=== PATIENT | female | born 2000 | race Caucasian/White ===

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

== ENCOUNTER 2018-01-07 07:24 | Inpatient (IN) ==
[2018-01-07] MEDS ORDERED: Citric Acid/Sodium Citrate Liq 30 ML UDC PO SCH (08:00)
[2018-01-07] MEDS ORDERED: Sod Chloride 0.9% Inj 1,000 ML IV.CONT PRN (08:00)
[2018-01-07] MEDS ORDERED: Sodium Chlor 0.9% Inj 500 ML IV.SIG PRN (08:00)
[2018-01-07] MEDS ORDERED: Oxytocin 30 Units/500ml Premix 30 UNITS/500 ML BAG IV.SIG ONE (08:00)
[2018-01-07] MEDS ORDERED: Naloxone Inj 0.4 MG/ML Vial IV.PUSH PRN ×2 (08:00→19:51)
[2018-01-07] MEDS ORDERED: fentaNYL Citrate Inj 100 MCG/2 ML Ampul IV.PUSH PRN ×2 (08:00)
--- NOTE | 2018-01-07 08:05 | ED ---
History of Present Illness Primary Care Physician: No Primary Care Physician Chief Complaint: ctx History of Present Illness: Pt is a 17y/o G1 @ 40.1wks. She has PNC with [facility]. She presents to the ED with c/o ctx which began Sunday but have been painful since last evening. She denies LOF, VB. +FM. Weeks Gestation:: 40 Para: 0 : 1 Review of Systems All other systems reviewed negative except as stated in HPI PMFSH - Medical History Medical History: Medical History (Last Updated 01/07/18 @ 08:03 by Sherlyn Vuong MD) Anemia - Tobacco History Smoking Status: Light tobacco smoker (Less than 1 per day, +MJ) - Alcohol History How Often Do You Have a Drink Containing Alcohol: Never - Substance Use History Substance History: Past History (MJ) - Travel History History of Recent Travel: No Medications and Allergies Active Medications: Active Medications Sodium Chloride (Ns Flush) 2 ml IV.FLUSH BID CLARENCE Sodium Chloride (Ns Flush) 2 ml IV.FLUSH PRN PRN PRN Reason: FLUSH AFTER USING IV ACCESS Allergies Allergy/AdvReac Type Severity Reaction Status Date / Time No Known Allergies Allergy Unknown none Uncoded 01/04/18 20:32 Home Medications Medication Instructions Recorded Confirmed Type ferrous sulfate [iron] 1 tab PO DAILY 01/04/18 01/04/18 History prenat.vits,luis,[id number] 1 tab PO DAILY 01/04/18 01/04/18 History [ Vitamin] Exam Vital signs: Vital Signs 01/07/18 07:38 Temperature 97.7 F Pulse Rate 75 Respiratory Rate 20 Blood Pressure 144/82 H Narrative: General: well developed, well nourished, uncomfortable with ctx HEENT: normocephalic atraumatic, extraocular movements intact, neck supple Abdomen: soft, gravid, nontender, nondistended Uterus: fundus term Extremities: full range of motion Skin: normal coloration, no rashes, no suspicious skin lesions noted Neurologic: cranial nerves 2-12 grossly intact, normal muscle tone, normal gait Psychiatric: normal mood and affect, appropriate FHTs: 130s, +accels, no decels, moderate variability, reactive [place]: ctx q 2-3m Cvx: 3-4/90/-2 Assessment and Plan - Diagnosis (1) 40 weeks gestation of Code(s): Z3A.40 - 40 weeks gestation of Status: Acute (2) Post-term , 40-42 weeks of gestation Code(s): O48.0 - Post-term Status: Acute (3) Uterine contractions during Code(s): O62.2 - Other uterine inertia Status: Acute - Plan 17y/o G1 @ 40.1wks in labor. -- admit to L&D -- CLD, CEFM/toco -- epidural/art PRN -- FHTs cat 1 Dispo: anticipate Discharge Plan - Physicians Team ED Provider: Sherlyn Vuong V Primary Care Provider: Primary Care Tahira Stoddard - Rxs /Orders / Referrals /Forms Prescriptions: No Action ferrous sulfate [iron] 325 mg (65 mg iron) Tablet 1 tab PO DAILY prenat.vits,luis,[id number] [ Vitamin] Tablet 1 tab PO DAILY - Discharge Instructions Print Language: Polish
[2018-01-07 08:56] LABS: Baso # (Auto) 0.1 th/mm3 (0.0-0.2); Baso % (Auto) 0.7 % (0.0-2.0); Eos # (Auto) 0.1 th/mm3 (0.0-0.4); Eos % (Auto) 0.8 % (0.0-4.0); Hematocrit 37.2 % (35.0-46.0); Hemoglobin 13.1 gm/dL (11.6-15.3); Lymph # (Auto) 1.9 th/mm3 (1.0-4.8); Lymph % (Auto) 24.2 % (9.0-44.0); Mean Corpuscular HGB Conc 35.1 % (32.0-36.0); Mean Corpuscular Hemoglobin 30.9 pg (27.0-34.0); Mono # (Auto) 0.6 th/mm3 (0.0-0.9); Mono % (Auto) 7.6 % (0.0-8.0); Neut # (Auto) 5.4 th/mm3 (1.8-7.7); Neut % (Auto) 66.7 % (16.0-70.0); Red Blood Count 4.23 mil/mm3 (4.00-5.30); Red Cell Distribution Width 13.1 % (11.6-17.2); White Blood Count 8.1 th/mm3 (4.0-11.0)
[2018-01-07 09:01] LABS: Bacteria,Urine Rare /hpf; Bilirubin,Urine Negative (Negative); Clarity,Urine Hazy (Clear); Color,Urine Yellow (Yellw/Straw); Glucose,Urine (UA) Negative (Negative); Leukocyte Esterase,Urine Trace (Negative); Nitrite,Urine Negative (Negative); Specific Gravity,Urine 1.013 (1.002-1.035); Squamous Epithelial Cell,Urine 4 /hpf (0-5)
[2018-01-07 09:05] LABS: Amphetamine Urine With Conf Neg (Neg); Benzodiazepine Urine With Conf Neg (Neg)
[2018-01-07] MEDS ORDERED: Lidocaaine 1.5%/Epinephrine 1:200,000 PF Inj 5 ML Amp ONE (09:16)
[2018-01-07] MEDS ORDERED: Lidocaine PF 1% Inj 5 ML Vial ONE (09:17)
[2018-01-07] MEDS ORDERED: fentaNYL 2MCG-Bupiv 0.125% Epi 150 ML EPIDURAL ONE (10:02)
[2018-01-07] MEDS ORDERED: fentaNYL 2MCG-Bupiv 0.125% Epi 150 ML EPIDURAL PRN (12:30)
[2018-01-07] MEDS ORDERED: fentaNYL Citrate Inj 100 MCG/2 ML Ampul EPIDURAL ONE (12:30)
--- NOTE | 2018-01-07 12:41 | P.HPOB ---
History of Present Illness Primary Care Physician: No Primary Care Physician Chief Complaint: contractions History of Present Illness: 17y/o G1 at 40.1wks by LMP presents with uterine contractions. She has PNC with [facility]. Contractions began last Sunday but has continued to increase in frequency and intensity. This morning at 5 AM or 3 minutes apart. She is having some cream-colored discharge with a little bit of blood. Denies any loss of fluids. Is feeling baby move. Uncomplicated . Noted to have some anemia and taking iron supplements. Stopped smoking marijuana at the end of November. Smokes a half of cigarettes per day. Did not get care until 21 weeks due to insurance. Denies any chest pain or shortness of breath. Weeks Gestation:: 40 Para: 0 : 1 - Inpatient Certification I certify that the inpatient services were ordered in accordance with Medicare regulations governing the order. This includes certification that hospital inpatient services are reasonable and necessary and in the case of services not specified as inpatient-only under 42 CFR 419.22(n), that they are appropriately provided as inpatient services in accordance to with the 2-midnight benchmark under 43 CFR 412.3(e) Estimated Total Length of Stay (Days): 3 Plans for Post Hospital Care: Home Review of Systems Constitutional: Denies chills Ears, Nose, Mouth, and Throat: Denies headache(s) Cardiovascular: Denies chest pain, Denies shortness of breath Gastrointestinal: Denies vomiting Neurologic: Denies headache(s) PMFSH - Medical / Surgical Hx Neg / Unobtainable Medical Problems Denied: Yes Surgical History: No Previous Surgery - Tobacco History Smoking Status: Light tobacco smoker (Less than 1 per day, +MJ) - Alcohol History How Often Do You Have a Drink Containing Alcohol: Never - Substance Use History Substance History: Past History (MJ) - Travel History History of Recent Travel: No Recent Travel in the [place] Within the Last 8 Weeks: No Recent Travel Out of the Country Within the Last 8 Weeks: No Medications and Allergies Allergies Allergy/AdvReac Type Severity Reaction Status Date / Time No Known Allergies Allergy Verified 01/07/18 08:29 Home Medications Medication Instructions Recorded Confirmed Type ferrous sulfate [iron] 1 tab PO DAILY 01/04/18 01/07/18 History prenat.vits,luis,for-bbmq-ljxcd 1 tab PO DAILY 01/04/18 01/07/18 History [ Vitamin] Active Medications: Active Medications Citric Acid/Sodium Citrate (Sodium Citrate/Citric Acid Liq) 30 ml PO [employer] [facility] Stop: 01/11/18 07:59 Ephedrine Sulfate (Ephedrine/Ns Syringe) 10 mg IV.PUSH UNSCH PRN PRN Reason: SEE LABEL COMMENTS Stop: 01/08/18 12:17 Fentanyl Citrate (Fentanyl Inj) 50 mcg IV.PUSH Q1H PRN PRN Reason: Pain Scale 3 - 5 Fentanyl Citrate (Fentanyl Inj) 100 mcg IV.PUSH Q1H PRN PRN Reason: PAIN SCALE 6 TO 10 Last Admin: 01/07/18 08:35 Dose: 100 mcg Lactated Ringer's (Lr 1000 Ml Inj) 1,000 mls @ 125 mls/hr IV.CONT .Q8H CLARENCE Last Admin: 01/07/18 08:30 Dose: 125 mls/hr Lactated Ringer's (Lr 1000 Ml Inj) 1,000 mls @ 3,000 mls/hr IV.SIG UNSCH PRN PRN Reason: compromise or epidural Last Admin: 01/07/18 11:03 Dose: 3,000 mls/hr Sodium Chloride (Ns Inj) 500 mls @ 1,000 mls/hr IV.SIG UNSCH PRN PRN Reason: SEE LABEL COMMENTS Sodium Chloride (Ns Inj) 1,000 mls @ 100 mls/hr IV.CONT .Q10H PRN PRN Reason: SEE LABEL COMMENTS Fentanyl/Bupivacaine/Sodium Chlor (Fentanyl 2 Mcg-Bupiv 0.125% Epi) 150 mls @ 12 mls/hr EPIDURAL UNSCH PRN PRN Reason: for Labor Pain Lidocaine HCl (Xylocaine 1% Inj) 0.1 ml I-DERMAL PRN PRN PRN Reason: For IV start Stop: 01/10/18 07:59 Lidocaine HCl (Xylocaine 1% Inj) 10 ml INFILTRATN PRN PRN PRN Reason: For episiotomy repair Stop: 01/09/18 07:59 Mineral Oil (Muri-Lube Oil) 10 ml TOPICAL PRN PRN PRN Reason: PRN perineal massage Miscellaneous Information (Misc Information) 1 each OTHER UNSCH PRN PRN Reason: SEE LABEL COMMENTS Stop: 01/08/18 12:17 Miscellaneous Information (Misc Information) 1 each OTHER UNSCH PRN PRN Reason: SEE LABEL COMMENTS Stop: 01/08/18 12:17 Naloxone HCl (Narcan Inj) 0.1 mg IV.PUSH Q2M PRN PRN Reason: for opiate reversal Ondansetron HCl (Zofran Inj) 4 mg IV.PUSH Q6H PRN PRN Reason: NAUSEA OR VOMITING Last Admin: 01/07/18 10:18 Dose: 4 mg Sodium Chloride (Ns Flush) 2 ml IV.FLUSH BID CLARENCE Last Admin: 01/07/18 11:04 Dose: Not Given Sodium Chloride (Ns Flush) 2 ml IV.FLUSH PRN PRN PRN Reason: FLUSH AFTER USING IV ACCESS Exam Vital signs: Vital Signs 01/07/18 07:38 01/07/18 07:55 01/07/18 08:25 Temperature 97.7 F Pulse Rate 75 81 82 Respiratory Rate 20 Blood Pressure 144/82 H 01/07/18 09:10 01/07/18 09:25 01/07/18 10:00 Temperature 98.7 F Pulse Rate 81 93 H 69 Respiratory Rate 22 Blood Pressure 108/72 01/07/18 10:55 01/07/18 10:58 01/07/18 11:00 Temperature Pulse Rate 96 H 73 76 Respiratory Rate Blood Pressure 129/87 122/72 119/73 01/07/18 11:25 01/07/18 11:41 01/07/18 11:56 Temperature Pulse Rate 58 L 69 81 Respiratory Rate Blood Pressure 117/64 100/61 105/64 01/07/18 12:01 01/07/18 12:05 Temperature Pulse Rate 70 77 Respiratory Rate Blood Pressure 110/67 Intake & Output 01/06/18 01/07/18 01/07/18 18:59 06:59 18:59 Weight 58 kg Other: Weight On Admission 58 kg Narrative: General: well developed, well nourished, uncomfortable with ctx HEENT: normocephalic atraumatic, extraocular movements intact, neck supple Abdomen: soft, gravid, nontender, nondistended Uterus: fundus term Extremities: full range of motion Skin: normal coloration, no rashes, no suspicious skin lesions noted Neurologic: cranial nerves 2-12 grossly intact, normal muscle tone, normal gait Psychiatric: normal mood and affect, appropriate FHTs: 130s, +accels, no decels, moderate variability, reactive [place]: contractions 2-3m Cvx: 3-4/90/-2 Results - Labs CBC & Chem 7: 01/07/18 08:30 Labs: Laboratory Results - last 24 hr 01/07/18 01/07/18 01/07/18 07:35 08:30 08:30 WBC 8.1 RBC 4.23 Hgb 13.1 Hct 37.2 MCV 88.0 MCH 30.9 MCHC 35.1 RDW 13.1 Plt Count MPV 12.0 H Prelim Diff (Auto) Slide review pending Neut % (Auto) 66.7 Lymph % (Auto) 24.2 [place] % (Auto) 7.6 Eos % (Auto) 0.8 Baso % (Auto) 0.7 Neut # (Auto) 5.4 Lymph # (Auto) 1.9 [place] # (Auto) 0.6 Eos # (Auto) 0.1 Baso # (Auto) 0.1 WBC Differential . Diff Scan Auto diff confirmed Differential Comment . Platelet Estimate Low L Platelet Morphology Enlarged H Urine Color Urine Clarity Urine pH Ur Specific [place] Urine Protein Urine Glucose (UA) Urine Ketones Urine Occult Blood Urine Nitrate Urine Bilirubin Urine Urobilinogen Ur Leukocyte Esterase Urine RBC Urine WBC Ur Squamous Epith Cells Urine Bacteria Micro UA Comment Ur Microscopic Review Urine Culture Comments Urine Opiates Screen Neg Ur Barbiturates Screen Neg Ur Amphetamine Screen Neg U Benzodiazepines Scrn Neg Urine Cocaine Screen Neg U Cannabinoids Screen Neg Blood Type O Negative 01/07/18 08:30 WBC RBC Hgb Hct MCV MCH MCHC RDW Plt Count MPV Prelim Diff (Auto) Neut % (Auto) Lymph % (Auto) [place] % (Auto) Eos % (Auto) Baso % (Auto) Neut # (Auto) Lymph # (Auto) [place] # (Auto) Eos # (Auto) Baso # (Auto) WBC Differential Diff Scan Differential Comment Platelet Estimate Platelet Morphology Urine Color Yellow Urine Clarity Hazy H Urine pH 6.0 Ur Specific [place] 1.013 Urine Protein Negative Urine Glucose (UA) Negative Urine Ketones Negative Urine Occult Blood Moderate H Urine Nitrate Negative Urine Bilirubin Negative Urine Urobilinogen Less than 2 Ur Leukocyte Esterase Trace H Urine RBC Less than 1 Urine WBC 9 H Ur Squamous Epith Cells 4 Urine Bacteria Rare H Micro UA Comment Culture indicated Ur Microscopic Review Not Reportable Urine Culture Comments Culture indicated Urine Opiates Screen Ur Barbiturates Screen Ur Amphetamine Screen U Benzodiazepines Scrn Urine Cocaine Screen U Cannabinoids Screen Blood Type Caprini VTE Risk Assessment Caprini VTE Risk Assessment: Moderate/High Risk (score >= 2) Caprini Risk Assessment Model: Point Value = 1 Point Value = 2 Point Value = 3 Point Value = 5 Age 41-60 Minor surgery BMI > 25 kg/m2 Swollen legs Varicose veins or History of unexplained or recurrent spontaneous Oral contraceptives or hormone replacement Sepsis (< 1 month) Serious lung disease, including pneumonia (< 1 month) Abnormal pulmonary function Acute myocardial infarction Congestive heart failure (< 1 month) History of inflammatory bowel disease Medical patient at bed rest Age 61-74 Arthroscopic surgery Major open surgery (> 45 min) Laparoscopic surgery (> 45 min) Malignancy Confined to bed (> 72 hours) Immobilizing plaster cast Central venous access Age >= 75 History of VTE Family history of VTE Factor V Leiden Prothrombin [id number] Lupus anticoagulant Anticardiolipin antibodies Elevated serum homocysteine Heparin-induced thrombocytopenia Other congenital or acquired thrombophilia Stroke (< 1 month) Elective arthroplasty Hip, pelvis, or leg fracture Acute spinal cord injury (< 1 month) Prophylaxis Regimen: Total Risk Factor Score Risk Level Prophylaxis Regimen 0-1 Low Early ambulation 2 Moderate Order ONE of the following: *Sequential Compression Device (SCD) *Heparin 5000 units SQ BID 3-4 Higher Order ONE of the following medications: *Heparin 5000 units SQ TID *Enoxaparin/Lovenox 40 mg SQ daily (WT < 150 kg, CrCl > 30 mL/min) *Enoxaparin/Lovenox 30 mg SQ daily (WT < 150 kg, CrCl > 10-29 mL/min) *Enoxaparin/Lovenox 30 mg SQ BID (WT < 150 kg, CrCl > 30 mL/min) AND/OR *Sequential Compression Device (SCD) 5 or more Highest Order ONE of the following medications: *Heparin 5000 units SQ TID (Preferred with Epidurals) *Enoxaparin/Lovenox 40 mg SQ daily (WT < 150 kg, CrCl > 30 mL/min) *Enoxaparin/Lovenox 30 mg SQ daily (WT < 150 kg, CrCl > 10-29 mL/min) *Enoxaparin/Lovenox 30 mg SQ BID (WT < 150 kg, CrCl > 30 mL/min) AND *Sequential Compression Device (SCD) Assessment and Plan - Diagnosis (1) Uterine contractions during Code(s): O62.2 - Other uterine inertia Status: Acute Plan: 17-year-old G 1 P0 presents at 40 weeks and 1 day by last period Presents with uterine contractions. GBS negative on 831. heart tracings category 1. -Cervical exam: 3-/-2 -Admit to labor and delivery -FHT - Attending Attestation The exam, history, and the medical decision-making described in the above note were completed with the assistance of the resident physician. I reviewed and agree with the findings presented. I attest that I had a [id number] encounter with the patient on the same day, and personally performed and documented my assessment and findings in the medical record.
--- NOTE | 2018-01-07 13:53 | P.OBLABOR ---
Subjective Interval history: Patient states that she is doing well. Pain is well-controlled with epidural. No complaints. Objective Vital Signs: Vital Signs - 8 hr 01/07/18 07:38 01/07/18 07:55 01/07/18 08:25 Temperature 97.7 F Pulse Rate 75 81 82 Respiratory Rate 20 Blood Pressure 144/82 H 01/07/18 09:10 01/07/18 09:25 01/07/18 10:00 Temperature 98.7 F Pulse Rate 81 93 H 69 Respiratory Rate 22 Blood Pressure 108/72 01/07/18 10:55 01/07/18 10:58 01/07/18 11:00 Temperature Pulse Rate 96 H 73 76 Respiratory Rate Blood Pressure 129/87 122/72 119/73 01/07/18 11:25 01/07/18 11:41 01/07/18 11:56 Temperature Pulse Rate 58 L 69 81 Respiratory Rate Blood Pressure 117/64 100/61 105/64 01/07/18 12:01 01/07/18 12:05 01/07/18 12:10 Temperature 98.3 F Pulse Rate 70 77 67 Respiratory Rate 18 Blood Pressure 110/67 01/07/18 12:40 01/07/18 12:46 Temperature Pulse Rate 79 71 Respiratory Rate Blood Pressure 132/120 H 121/72 Objective: Pelvic Exam: Cervix: mid position Dilatation: 5 cm Effacement: 100% Station: -1 Presentation: vertex Membranes: ruptured Uterine Contractions: q2-3 min FHT's: Category: 1 Baseline: 140s Reactive: yes Variability: moderate Decels: none Assessment and Plan - Diagnosis (1) Uterine contractions during Code(s): O62.2 - Other uterine inertia Status: Acute Plan: 17-year-old G 1 P0 presents at 40 weeks and 1 day by last period Presents with uterine contractions. GBS negative on 831. heart tracings continues to be category 1, reassuring. -Cervical exam: 5/100/-1 -AROM at 1347 of meconium stained fluid - Attending Attestation The exam, history, and the medical decision-making described in the above note were completed with the assistance of the resident physician. I reviewed and agree with the findings presented. I attest that I had a [id number] encounter with the patient on the same day, and personally performed and documented my assessment and findings in the medical record.
[2018-01-07] MEDS ORDERED: Lidocaine PF 1% Inj 30 ML Vial ONE (15:38)
[2018-01-07] MEDS ORDERED: Measles/Mumps/Rubella Vaccine Inj 0.5 ML Vial SQ ONE (16:00)
[2018-01-07] MEDS ORDERED: Diphtheria/Tetanus/Pertussis Vaccine Inj 0.5 ML Syringe IM ONE (16:00)
--- NOTE | 2018-01-07 18:29 | P.OBGPN ---
S: Pt is comfortable with epidural. O:VSS cat1 FHR /-2 A: progressing inactive phase P: Cont current care.
[2018-01-07] MEDS ORDERED: Oxytocin 30 Units/500ml Premix 30 UNITS/500 ML BAG ONE (19:04)
[2018-01-07] MEDS ORDERED: Bisacodyl 10 MG Supp RECTAL PRN (19:51)
[2018-01-07] MEDS ORDERED: Acetaminophen 325 MG Tablet PO PRN (19:51)
[2018-01-07] MEDS ORDERED: Oxytocin 30 Units/500ml Premix 30 UNITS/500 ML BAG IV.CONT PRN (19:51)
[2018-01-07] MEDS ORDERED: Benzocaine 20% Top Spray 60 ML Can TOPICAL PRN (19:51)
[2018-01-07] MEDS ORDERED: Zolpidem Tartrate 5 MG Tablet PO PRN (19:51)
[2018-01-07] MEDS ORDERED: Witch Hazel 50%/Glyderin 12.5% 40 Pad Jar RECTAL PRN (19:51)
--- NOTE | 2018-01-07 19:52 | P.OBDELI ---
Weeks Gestation: 40 Medical Induction of Labor: Yes Artificial Rupture of Membrane: Yes Anesthesia: Epidural Episiotomy: none Vaginal Delivery: Normal Presentation: Occiput anterior Nuchal Cord: None Delayed Cord Clamping (45 sec): Yes Laceration: 1 deg Estimated blood loss (mL): 200 (1st degree lacerations at 7 and 2 o'clock positions) : Female Infant Female A Weight: 3235 kg score (5 min): 8 score (10 min): 9 Additional Information: Head delivered by maternal effort. Anterior shoulder delivered without complication. Placenta delivered without complication. 1st degree tears at 7 and 2 o'clock position. No suture repair required. I attended and assisted with this delivery. (Priscilla HERR)
[2018-01-08] MEDS ORDERED: miSOPROStol 200 MCG Tablet ONE ×2 (01:44)
[2018-01-08] MEDS ORDERED: Tranexamic Acid Inj 1,000 MG in Sodium Chlor 0.9% Inj 100 ML IV.SIG ONE (01:48)
[2018-01-08] MEDS ORDERED: Oxytocin 30 Units/500ml Premix 30 UNITS/500 ML BAG IV.SIG ONE (01:48)
[2018-01-08] MEDS ORDERED: miSOPROStol 200 MCG Tablet RECTAL ONE (01:48)
[2018-01-08] MEDS ORDERED: miSOPROStol 200 MCG Tablet PO ONE (01:48)
[2018-01-08] MEDS ORDERED: Methylergonovine Inj 0.2 MG/ML Ampul ONE (01:48)
[2018-01-08] MEDS ORDERED: Methylergonovine Inj 0.2 MG/ML Ampul IM ONE ×2 (02:15→02:30)
--- NOTE | 2018-01-08 02:41 | P.OBGPN ---
I was called to assess this recent pp mother due to excessive bleeding. Upon arrival she was alert and oriented, bp146/98, pulse 100, Sat 98%, Dumas catheter was in place and had drained 150 cc of kannan urine Large clots were present on her veto-pad, the fundus was firm An IV Pitocin bolus was underway. The patient was given an additional 0.2 mg of IM methargen. A second IV was initiated and a CBC was sent. A bedside ultrasound was performed which demonstrated evidence of clot in the lower uterine segment and cervix. Bimanual examination was successful in removing these. Repeat ultrasound showed a much more appropriate endometrial cavity and the bleeding at the perineum had resolved. The blood loss was quantified by weight at 1055 g Her vital signs remained stable throughout with no significant drop in her blood pressure or further elevation of her pulse. Assessment: hemorrhage likely secondary to uterine atony which is now resolved Plan: Continue IV Pitocin solution. Hemoglobin pending.
[2018-01-08 02:55] LABS: Hematocrit 34.3 % (35.0-46.0); Hemoglobin 11.4 gm/dL (11.6-15.3); Mean Corpuscular HGB Conc 33.3 % (32.0-36.0); Mean Corpuscular Hemoglobin 29.7 pg (27.0-34.0); Mean Corpuscular Volume 89.2 fL (80.0-100.0); Mean Platelet Volume 12.3 fL (7.0-11.0); Red Blood Count 3.84 mil/mm3 (4.00-5.30); Red Cell Distribution Width 13.1 % (11.6-17.2)
[2018-01-08] MEDS ORDERED: Oxytocin 30 Units/500ml Premix 30 UNITS/500 ML BAG IV.SIG SCH (03:00)
[2018-01-08 03:33] LABS: Platelet Count 127 th/mm3 (150-450)
[2018-01-08 04:11] VITALS: O2SAT 97
[2018-01-08] MEDS: Senna/Docusate Sodium 8.6/50 MG Tablet PO SCH ×2 (04:20→19:00)
--- NOTE | 2018-01-08 08:01 | P.PNOB ---
Subjective Post day: 1 Interval history: Patient is a 17-year-old delivered at 40 weeks and 1 day. Patient is day 1 after vaginal delivery. Patient's pain is well-controlled. Patient reports moderate bleeding; bleeding has decreased since evaluation and evacuation of blood clots yesterday evening (1055cc PPH). Patient reports eating and drinking without any nausea or vomiting. Patient has passed gas but has not had a bowel movement. Patient denies chest pain and shortness of breath. Patient denies lower extremity pain. Patient reports desire for contraception, which she will discuss with her PCP at her first follow-up visit. Patient has decided to breast and bottle-feed. Objective Vital Signs/I&O: Vital Signs 01/07/18 07:55 01/07/18 08:25 01/07/18 09:10 Temperature Pulse Rate 81 82 81 Respiratory Rate Blood Pressure Pulse Oximetry 01/07/18 09:25 01/07/18 10:00 01/07/18 10:55 Temperature 98.7 F Pulse Rate 93 H 69 96 H Respiratory Rate 22 Blood Pressure 108/72 129/87 Pulse Oximetry 01/07/18 10:58 01/07/18 11:00 01/07/18 11:25 Temperature Pulse Rate 73 76 58 L Respiratory Rate Blood Pressure 122/72 119/73 117/64 Pulse Oximetry 01/07/18 11:41 01/07/18 11:56 01/07/18 12:01 Temperature Pulse Rate 69 81 70 Respiratory Rate Blood Pressure 100/61 105/64 110/67 Pulse Oximetry 01/07/18 12:05 01/07/18 12:10 01/07/18 12:40 Temperature 98.3 F Pulse Rate 77 67 79 Respiratory Rate 18 Blood Pressure 132/120 H Pulse Oximetry 01/07/18 12:46 01/07/18 13:30 01/07/18 13:40 Temperature Pulse Rate 71 92 H 67 Respiratory Rate Blood Pressure 121/72 111/55 L Pulse Oximetry 01/07/18 13:50 01/07/18 14:10 01/07/18 14:35 Temperature Pulse Rate 76 71 78 Respiratory Rate Blood Pressure 115/66 111/62 104/65 Pulse Oximetry 01/07/18 14:50 01/07/18 15:10 01/07/18 15:30 Temperature 98.9 F Pulse Rate 70 62 67 Respiratory Rate 20 Blood Pressure 112/75 110/62 111/59 L Pulse Oximetry 01/07/18 15:35 01/07/18 16:16 01/07/18 16:25 Temperature Pulse Rate 85 79 85 Respiratory Rate Blood Pressure 125/86 108/61 Pulse Oximetry 01/07/18 16:50 01/07/18 16:55 01/07/18 17:15 Temperature 98.5 F Pulse Rate 62 71 Respiratory Rate 18 Blood Pressure 102/58 L Pulse Oximetry 01/07/18 17:25 01/07/18 17:40 01/07/18 18:05 Temperature Pulse Rate 82 100 H 85 Respiratory Rate Blood Pressure 107/90 120/105 H 125/81 Pulse Oximetry 01/07/18 18:20 01/07/18 18:40 01/07/18 18:55 Temperature Pulse Rate 90 98 H 102 H Respiratory Rate Blood Pressure 126/77 129/96 H 126/82 Pulse Oximetry 01/07/18 19:10 01/07/18 19:47 01/07/18 20:30 Temperature 98.2 F Pulse Rate 131 H 90 Respiratory Rate 18 Blood Pressure 130/97 H 33/20 L Pulse Oximetry 01/07/18 21:00 01/07/18 21:15 01/07/18 21:30 Temperature Pulse Rate 78 Respiratory Rate 18 8 L Blood Pressure 119/87 Pulse Oximetry 01/08/18 00:00 01/08/18 01:40 01/08/18 01:53 Temperature 98.6 F Pulse Rate 68 111 H 105 H Respiratory Rate 18 24 Blood Pressure 140/78 149/90 H 142/96 H Pulse Oximetry 98 01/08/18 02:00 01/08/18 02:10 01/08/18 02:15 Temperature Pulse Rate 82 89 74 Respiratory Rate 20 20 18 Blood Pressure 148/89 H 144/94 H 144/88 H Pulse Oximetry 99 100 97 01/08/18 02:53 01/08/18 05:49 01/08/18 06:35 Temperature 98.5 F 98.3 F Pulse Rate 89 75 64 Respiratory Rate 20 18 18 Blood Pressure 144/94 H 98/73 L 128/83 Pulse Oximetry Result Diagrams: 01/08/18 01:50 Objective Remarks: GENERAL: Well-nourished, well-developed patient. CARDIOVASCULAR: Regular rate and rhythm without murmurs, gallops, or rubs. RESPIRATORY: Breath sounds equal bilaterally. No accessory muscle use. ABDOMEN/GI: Abdomen soft, non-tender. Fundus: Firm, non-tender slightly above umbilicus. GENITOURINARY: Moderate bleeding. EXTREMITIES: No cyanosis or edema, non-tender, without signs of DVT. Medications and IVs: Active Medications Acetaminophen (Tylenol) 650 mg PO Q4H PRN PRN Reason: PAIN SCALE 1 TO 2 Al Hydroxide/Mg Hydroxide (Milk Of Magnesia Liq) 30 ml PO Q12H PRN PRN Reason: Mild Constipation Benzocaine (Americaine 20% Top Roy) 1 spray TOPICAL Q4H PRN PRN Reason: For Perineum Discomfort Bisacodyl (Dulcolax Supp) 10 mg RECTAL DAILY PRN PRN Reason: SEVERE CONSITIPATION Ephedrine Sulfate (Ephedrine/Ns Syringe) 10 mg IV.PUSH UNSCH PRN PRN Reason: SEE LABEL COMMENTS Stop: 01/08/18 12:17 Fentanyl/Bupivacaine/Sodium Chlor (Fentanyl 2 Mcg-Bupiv 0.125% Epi) 150 mls @ 12 mls/hr EPIDURAL UNSCH PRN PRN Reason: for Labor Pain Last Admin: 01/07/18 12:48 Dose: 12 mls/hr Oxytocin (Pitocin 30 Units/Ns 500 Ml Premix) 30 units in 500 mls @ 100 mls/hr IV.CONT UNSCH PRN PRN Reason: Heavy bleeding Last Admin: 01/08/18 01:45 Dose: 100 mls/hr Lactated Ringer's (Lr 1000 Ml Inj) 1,000 mls @ 200 mls/hr IV.CONT .Q5H [facility] Last Admin: 01/08/18 03:39 Dose: Not Given Lactated Ringer's (Lr 1000 Ml Inj) 1,000 mls @ 200 mls/hr IV.CONT .Q5H [place] Last Admin: 01/08/18 03:38 Dose: Not Given Oxytocin (Pitocin 30 Units/Ns 500 Ml Premix) 30 units in 500 mls @ 0 mls/hr IV.SIG ONCE [place] Stop: 01/08/18 09:00 Ibuprofen (Motrin) 800 mg PO Q8H PRN PRN Reason: For Cramping Lactulose (Lactulose Liq) 30 ml PO DAILY PRN PRN Reason: SEVERE CONSITIPATION Miscellaneous Information (Misc Information) 1 each OTHER UNSCH PRN PRN Reason: SEE LABEL COMMENTS Stop: 01/08/18 12:17 Miscellaneous Information (Misc Information) 1 each OTHER UNSCH PRN PRN Reason: SEE LABEL COMMENTS Stop: 01/08/18 12:17 Naloxone HCl (Narcan Inj) 0.1 mg IV.PUSH Q2M PRN PRN Reason: for opiate reversal Ondansetron HCl (Zofran Odt) 4 mg PO Q6H PRN PRN Reason: NAUSEA OR VOMITING Senna/Docusate Sodium (Susan-Colace) 1 tab PO BID [facility] Last Admin: 01/08/18 04:20 Dose: Not Given Sennosides (Senokot) 17.2 mg PO Q12H PRN PRN Reason: Moderate Constipation Sodium Chloride (Ns Flush) 2 ml IV.FLUSH BID [facility] Last Admin: 01/08/18 04:20 Dose: Not Given Sodium Chloride (Ns Flush) 2 ml IV.FLUSH PRN PRN PRN Reason: FLUSH AFTER USING IV ACCESS Witch Anastasiya/Glycerin (Tucks Pads) 1 applicatio RECTAL QID PRN PRN Reason: HEMORRHOIDS Zolpidem Tartrate (Ambien) 5 mg PO HS PRN PRN Reason: SLEEP Assessment and Plan - Diagnosis (1) Vaginal delivery Code(s): O80 - Encounter for full-term uncomplicated delivery Status: Acute Plan: Patient is a 17-year-old delivered at 40 weeks and 1 day. Patient is day 1 after vaginal delivery. Continue routine care. Motrin and Percocet when necessary for pain. Encourage OOB. Pelvic rest for 6 weeks will need follow-up appointment at that time. Contraception: To be discussed with OB provider at six week follow-up. Anticipate discharge tomorrow. (2) hemorrhage Code(s): O72.1 - Other immediate hemorrhage Status: Acute Plan: hemorrhage likely secondary to uterine atony which is now resolved. Dr. Wells was called yesterday evening for evaluation of excessive bleeding. Upon arrival the patient was alert and oriented, bp146/98, pulse 100, Sat 98%, Dumas catheter was in place and had drained 150 cc of kannan urine. Large clots were present on patient's susan-pad, the fundus was firm. An IV Pitocin bolus was underway. The patient was given an additional 0.2 mg of IM methargen. A second IV was initiated and a CBC was sent. A bedside ultrasound was performed which demonstrated evidence of clot in the lower uterine segment and cervix. Bimanual examination was successful in removing these. Repeat ultrasound showed a much more appropriate endometrial cavity and the bleeding at the perineum had resolved. Vitals: stable overnight. Labs: Hgb 11.4, Hct 34.3, WBC 20, Plt 127. Pitocin discontinued. Will maintain IV access. Dumas to be removed today as patient starts to ambulate. (3) Rh negative status during Code(s): O09.899 - Supervision of other high risk pregnancies, unspecified trimester; Z67.91 - Unspecified blood type, Rh negative Status: Acute Plan: Patient is O negative. Baby is O negative. No Rhogam needed. - Plan dw OB hospitalist - Attending Attestation The exam, history, and the medical decision-making described in the above note were completed with the assistance of the resident physician. I reviewed and agree with the findings presented. I attest that I had a [id number] encounter with the patient on the same day, and personally performed and documented my assessment and findings in the medical record.
[2018-01-08] MEDS: Ibuprofen 400 MG Tablet PO PRN (19:32)
[2018-01-09] MEDS: Senna/Docusate Sodium 8.6/50 MG Tablet PO SCH (00:10)
[2018-01-09 08:32] VITALS: BP 117/60; PULSE 67; RESP 16; TEMP 98.2
--- NOTE | 2018-01-09 08:36 | P.PNOB ---
Subjective Post day: 2 Interval history: Patient is a 17-year-old delivered at 40 weeks and 1 day. Patient is day 2 after vaginal delivery. Patient's pain is well-controlled. Patient reports minimal bleeding. Patient reports eating and drinking without any nausea or vomiting. Patient has passed gas but has not had a bowel movement. Patient denies chest pain and shortness of breath. Patient denies lower extremity pain. Patient reports desire for contraception, which she will discuss with her PCP at her first follow-up visit. Patient has decided to breast and bottle-feed. Objective Vital Signs/I&O: Vital Signs 01/08/18 20:00 Temperature 98.3 F Pulse Rate 78 Respiratory Rate 18 Blood Pressure 120/79 Result Diagrams: 01/08/18 01:50 Objective Remarks: GENERAL: Well-nourished, well-developed patient. CARDIOVASCULAR: Regular rate and rhythm without murmurs, gallops, or rubs. RESPIRATORY: Breath sounds equal bilaterally. No accessory muscle use. ABDOMEN/GI: Abdomen soft, non-tender. Fundus: Firm, non-tender at umbilicus. GENITOURINARY: Light to moderate bleeding. EXTREMITIES: No cyanosis or edema, non-tender, without signs of DVT. Medications and IVs: Active Medications Acetaminophen (Tylenol) 650 mg PO Q4H PRN PRN Reason: PAIN SCALE 1 TO 2 Al Hydroxide/Mg Hydroxide (Milk Of Magnóscar Liq) 30 ml PO Q12H PRN PRN Reason: Mild Constipation Benzocaine (Americaine 20% Top Elizabeth) 1 spray TOPICAL Q4H PRN PRN Reason: For Perineum Discomfort Bisacodyl (Dulcolax Supp) 10 mg RECTAL DAILY PRN PRN Reason: SEVERE CONSITIPATION Fentanyl/Bupivacaine/Sodium Chlor (Fentanyl 2 Mcg-Bupiv 0.125% Epi) 150 mls @ 12 mls/hr EPIDURAL UNSCH PRN PRN Reason: for Labor Pain Last Admin: 01/07/18 12:48 Dose: 12 mls/hr Oxytocin (Pitocin 30 Units/Ns 500 Ml Premix) 30 units in 500 mls @ 100 mls/hr IV.CONT UNSCH PRN PRN Reason: Heavy bleeding Last Admin: 01/08/18 01:45 Dose: 100 mls/hr Lactated Ringer's (Lr 1000 Ml Inj) 1,000 mls @ 200 mls/hr IV.CONT .Q5H [facility] Last Admin: 01/08/18 23:54 Dose: Not Given Lactated Ringer's (Lr 1000 Ml Inj) 1,000 mls @ 200 mls/hr IV.CONT .Q5H [facility] Last Admin: 01/08/18 23:54 Dose: Not Given Ibuprofen (Motrin) 800 mg PO Q8H PRN PRN Reason: For Cramping Last Admin: 01/08/18 19:32 Dose: 800 mg Lactulose (Lactulose Liq) 30 ml PO DAILY PRN PRN Reason: SEVERE CONSITIPATION Naloxone HCl (Narcan Inj) 0.1 mg IV.PUSH Q2M PRN PRN Reason: for opiate reversal Ondansetron HCl (Zofran Odt) 4 mg PO Q6H PRN PRN Reason: NAUSEA OR VOMITING Senna/Docusate Sodium (Susan-Colace) 1 tab PO BID [facility] Last Admin: 01/09/18 00:10 Dose: 1 tab Sennosides (Senokot) 17.2 mg PO Q12H PRN PRN Reason: Moderate Constipation Sodium Chloride (Ns Flush) 2 ml IV.FLUSH BID [facility] Last Admin: 01/09/18 00:10 Dose: 2 ml Sodium Chloride (Ns Flush) 2 ml IV.FLUSH PRN PRN PRN Reason: FLUSH AFTER USING IV ACCESS Witch Anastasiya/Glycerin (Tucks Pads) 1 applicatio RECTAL QID PRN PRN Reason: HEMORRHOIDS Zolpidem Tartrate (Ambien) 5 mg PO HS PRN PRN Reason: SLEEP Assessment and Plan - Diagnosis (1) Vaginal delivery Code(s): O80 - Encounter for full-term uncomplicated delivery Status: Acute Plan: Patient is a 17-year-old delivered at 40 weeks and 1 day. Patient is day 2 after vaginal delivery. Continue routine care. Motrin and Percocet when necessary for pain. Encourage OOB. Pelvic rest for 6 weeks will need follow-up appointment at that time. Contraception: To be discussed with OB provider at six week follow-up. Anticipate discharge today. (2) hemorrhage Code(s): O72.1 - Other immediate hemorrhage Status: Acute Plan: hemorrhage likely secondary to uterine atony which is now resolved. Dr. Wells was called evening of 01/07 for evaluation of excessive bleeding. Upon arrival the patient was alert and oriented, bp146/98, pulse 100, Sat 98%, Dumas catheter was in place and had drained 150 cc of kannan urine. Large clots were present on patient's susan-pad, the fundus was firm. An IV Pitocin bolus was underway. The patient was given an additional 0.2 mg of IM methargen. A second IV was initiated and a CBC was sent. A bedside ultrasound was performed which demonstrated evidence of clot in the lower uterine segment and cervix. Bimanual examination was successful in removing these. Repeat ultrasound showed a much more appropriate endometrial cavity and the bleeding at the perineum had resolved. Vitals: stable overnight. Labs: Hgb 11.4, Hct 34.3, WBC 20, Plt 127. Repeat H&H this morning. (3) Rh negative status during Code(s): O09.899 - Supervision of other high risk pregnancies, unspecified trimester; Z67.91 - Unspecified blood type, Rh negative Status: Acute Plan: Patient is O negative. Baby is O negative. No Rhogam needed. - Plan dw OB hospitalist
[2018-01-09 11:05] LABS: Hematocrit 26.1 % (35.0-46.0); Hemoglobin 9.1 gm/dL (11.6-15.3); Mean Corpuscular HGB Conc 34.7 % (32.0-36.0); Mean Corpuscular Hemoglobin 30.4 pg (27.0-34.0); Mean Corpuscular Volume 87.6 fL (80.0-100.0); Mean Platelet Volume 11.2 fL (7.0-11.0); Platelet Count 107 th/mm3 (150-450); Red Blood Count 2.97 mil/mm3 (4.00-5.30); Red Cell Distribution Width 13.1 % (11.6-17.2); White Blood Count 11.4 th/mm3 (4.0-11.0)
[2018-01-09] MEDS: Ibuprofen 400 MG Tablet PO PRN (15:46)
== END 2018-01-09 16:24 | disposition home or self-care (01) ==
LOC: HOBED 07:24 → H2E 08:01 → H1EA 23:10
PROVIDERS: ADMIT Obstetrics & Gynecology; ATTEND Obstetrics & Gynecology